=== PATIENT | male | born 1960 | race African-American/Black ===

== ENCOUNTER 2017-12-20 09:59 | Emergency (ER) | payer MEDICAID, OTHER ==
[~2017-12-20] VITALS: Ht 182.9 cm; Wt 125.0 kg
[~2017-12-20 09:59] MED LIST: ASPI-1158 PO; ESCI10TA PO
[2017-12-20 10:15] VITALS: BP 173/110
== END 2017-12-20 11:44 | disposition home or self-care (01) ==
LOC: ER 09:59
DX: I10 Essential (primary) hypertension (principal); Z79.82 Long term (current) use of aspirin
CPT/HCPCS: 99281

== ENCOUNTER 2018-10-26 16:17 | Emergency (ER) | payer MEDICAID ==
[~2018-10-26] VITALS: Ht 180.3 cm; Wt 98.0 kg
[2018-10-26] MEDS ORDERED: SODIUM CHLORIDE 0.9% 1,000 ML IV ONE (17:54)
[2018-10-26] MEDS ORDERED: ASPIRIN 81MG TABLET PO ONE (18:00)
[2018-10-26 19:26] LABS: BASOPHILS % 1.1 % (0.0-2.0); CHLORIDE 100 mEq/L (98-107); EOSINOPHILS % 1.2 % (0.0-5.0); HEMATOCRIT. 40.2 % (42.0-52.0); MEAN CORPUSCULAR HEMOGLOBIN 30.7 pg (28.0-32.0); MEAN CORPUSCULAR VOLUME 88.2 fL (80.0-94.0); MEAN PLATELET VOLUME 8.5 fl (7.4-10.4); MONOCYTES % 8.6 % (2.0-8.0); NEUTROPHILS % 50.1 % (40.0-76.0); PLATELET 200 x1000/uL (130-400); RED BLOOD CELL COUNT 4.56 mill/uL (4.7-6.1); RED CELL DISTRIBUTION WIDTH 13.6 % (11.6-14.6)
[2018-10-26 21:06] VITALS: BP 126/70
== END 2018-10-26 21:07 | disposition left against medical advice (07) ==
LOC: ER 16:17 → CANBEDREQ 23:31
DX: N17.9 Acute kidney failure, unspecified (principal); I95.9 Hypotension, unspecified; R07.89 Other chest pain; I10 Essential (primary) hypertension; E78.00 Pure hypercholesterolemia, unspecified; R00.0 Tachycardia, unspecified; E11.9 Type 2 diabetes mellitus without complications; Z79.82 Long term (current) use of aspirin
CPT/HCPCS: 36415; 71045; 80053; 83880; 84484; 85025; 93005; 96360; 96361; 99284; J7030

== ENCOUNTER 2019-05-03 15:06 | Emergency (ER) | payer MEDICAID | END 2019-05-03 19:26 | disposition left against medical advice (07) | LOC: ER 15:06 | DX: Z53.21 Procedure and treatment not carried out due to patient leaving prior to being seen by health care provider (principal) ==

== ENCOUNTER 2019-10-08 02:21 | Emergency (ER) | payer MEDICAID ==
[~2019-10-08] VITALS: Ht 182.9 cm; Wt 127.0 kg
[2019-10-08] MEDS ORDERED: MORPHINE SULFATE 4 MG/ML CPJ (NOT FOR IM USE) IV STA (06:45)
[2019-10-08 07:30] LABS: BASOPHILS % 1.6 % (0.0-2.0); EOSINOPHILS % 2.7 % (0.0-5.0); HEMATOCRIT. 40.9 % (42.0-52.0); HEMOGLOBIN. 14.3 g/dL (14.0-18.0); LYMPHOCYTES % 39.3 % (20.0-50.0); MEAN CORPUSCULAR VOLUME 88.7 fL (80.0-94.0); MEAN PLATELET VOLUME 8.5 fl (7.4-10.4); MONOCYTES % 8.7 % (2.0-8.0); NEUTROPHILS % 47.7 % (40.0-76.0); PLATELET 209 x1000/uL (130-400); RED BLOOD CELL COUNT 4.61 mill/uL (4.7-6.1); RED CELL DISTRIBUTION WIDTH 13.8 % (11.6-14.6)
[2019-10-08 07:32] LABS: CHLORIDE 105 mEq/L (98-107)
[2019-10-08 07:35] LABS: PROTHROMBIN TIME 10.2 sec (9.6-11.0)
[2019-10-08 08:20] VITALS: BP 127/92
[2019-10-08 08:40] LABS: COLOR URINE YELLOW (YELLOW); KETONES URINE NEGATIVE (NEGATIVE); LEUKOCYTE ESTERASE URINE NEGATIVE (NEGATIVE); NITRITE URINE NEGATIVE (NEGATIVE); OCCULT BLOOD URINE NEGATIVE (NEGATIVE); PH URINE 5.5 (4.5-8.0); PROTEIN URINE NEGATIVE (NEGATIVE); SPECIFIC GRAVITY URINE 1.017 (1.005-1.030); UROBILINOGEN URINE 0.2 E.U./dL (0.2-1.0)
[2019-10-08 08:41] LABS: CLARITY URINE CLEAR (CLEAR)
== END 2019-10-08 08:25 | disposition home or self-care (01) ==
LOC: ER 02:46
DX: K42.9 Umbilical hernia without obstruction or gangrene (principal); K57.30 Diverticulosis of large intestine without perforation or abscess without bleeding; E11.9 Type 2 diabetes mellitus without complications; I10 Essential (primary) hypertension; E78.00 Pure hypercholesterolemia, unspecified; Z79.82 Long term (current) use of aspirin
CPT/HCPCS: 36415; 74176; 80053; 81003; 83690; 85025; 85610; 96374; 99284; J2270

== ENCOUNTER 2019-11-12 10:49 | Inpatient (IN) | payer MEDICAID ==
[~2019-11-12] VITALS: Ht 182.9 cm; Wt 127.0 kg
[2019-11-12] MEDS ORDERED: SODIUM CHLORIDE 0.9% 1,000 ML IV ONE (11:47)
[2019-11-12 11:51] LABS: CHLORIDE 102 mEq/L (98-107)
[2019-11-12 11:52] LABS: BASOPHILS % 1.1 % (0.0-2.0); EOSINOPHILS % 0.5 % (0.0-5.0); HEMATOCRIT. 44.1 % (42.0-52.0); HEMOGLOBIN. 15.2 g/dL (14.0-18.0); LYMPHOCYTES % 27.2 % (20.0-50.0); MEAN CORPUSCULAR HEMOGLOBIN 30.4 pg (28.0-32.0); MEAN CORPUSCULAR VOLUME 88.2 fL (80.0-94.0); MEAN PLATELET VOLUME 8.4 fl (7.4-10.4); MONOCYTES % 10.1 % (2.0-8.0); NEUTROPHILS % 61.1 % (40.0-76.0); PLATELET 193 x1000/uL (130-400); RED CELL DISTRIBUTION WIDTH 14.7 % (11.6-14.6)
[2019-11-12] MEDS: POTASSIUM CHLORIDE 20MEQ TABLET SR PO NR ×2 (12:15→13:34)
[2019-11-12] MEDS ORDERED: SODIUM CHLORIDE 0.9% 1000ML BAG (SEPSIS BOLUS) IV ONE (13:00)
[2019-11-12 13:36] LABS: CLARITY URINE CLEAR (CLEAR); COLOR URINE YELLOW (YELLOW); KETONES URINE NEGATIVE (NEGATIVE); LEUKOCYTE ESTERASE URINE NEGATIVE (NEGATIVE); NITRITE URINE NEGATIVE (NEGATIVE); OCCULT BLOOD URINE NEGATIVE (NEGATIVE); PH URINE 6.5 (4.5-8.0); PROTEIN URINE NEGATIVE (NEGATIVE); SPECIFIC GRAVITY URINE 1.014 (1.005-1.030); UROBILINOGEN URINE 0.2 E.U./dL (0.2-1.0)
[2019-11-12 13:51] LABS: *AMPHETAMINES SCREEN URINE NEGATIVE (NEGATIVE); *BARBITURATES SCREEN URINE NEGATIVE (NEGATIVE); *BENZODIAZEPINES SCREEN URINE NEGATIVE (NEGATIVE); METHADONE URINE SCREEN NEGATIVE (NEGATIVE); OPIATES URINE SCREEN NEGATIVE (NEGATIVE)
[2019-11-12 13:52] LABS: *COCAINE SCREEN URINE NEGATIVE (NEGATIVE); PHENCYCLIDINE URINE SCREEN NEGATIVE (NEGATIVE)
[2019-11-12 13:53] LABS: CANNABINOID URINE SCREEN NEGATIVE (NEGATIVE)
[2019-11-12] MEDS ORDERED: SODIUM CHLORIDE 0.9% IV SCH (14:15)
[2019-11-12] MEDS ORDERED: ASPIRIN 325MG EC TABLET PO ONE (14:45)
[2019-11-12] MEDS: SODIUM CHLORIDE 0.45% 1,000 ML IV SCH (17:09)
[2019-11-12] MEDS ORDERED: IPRATROPIUM/ALBUTEROL 0.5-3(2.5)MG/3ML NEB NEB PRN (17:15)
[2019-11-12] MEDS ORDERED: DIPHENHYDRAMINE 50MG/ML VIAL IV PRN (17:15)
[2019-11-12] MEDS ORDERED: MORPHINE SULFATE 2 MG/ML CPJ (NOT FOR IM USE) IV PRN (17:15)
[2019-11-12] MEDS ORDERED: ACETAMINOPHEN 325MG TABLET PO PRN (17:15)
[2019-11-12] MEDS ORDERED: LORAZEPAM 2MG/ML CPJ IV PRN (17:15)
[2019-11-12] MEDS ORDERED: DEXTROSE 50% WATER 50ML SYRINGE IV PRN (17:15)
[2019-11-12] MEDS ORDERED: CLONIDINE 0.1MG TABLET PO PRN (17:15)
[2019-11-12] MEDS ORDERED: NA PHOS,M-B/NA PHOS,DI-BA ENEMA 118ML PR PRN (17:15)
[2019-11-12] MEDS ORDERED: HYDRALAZINE 20MG/ML VIAL IV PRN (17:15)
[2019-11-12] MEDS ORDERED: DOCUSATE SODIUM 100MG CAPSULE PO PRN (17:15)
[2019-11-12] MEDS ORDERED: ENOXAPARIN 40MG/0.4ML SYR SUBCUT SCH (17:15)
[2019-11-12] MEDS ORDERED: HYDROCODONE/ACETAMINOPHEN 10/325MG TABLET PO PRN (17:15)
[2019-11-12] MEDS ORDERED: ONDANSETRON HCL 4MG/2ML INJ IV PRN (17:15)
[2019-11-12] MEDS ORDERED: MAGNESIUM/ALUMINUM HYDROXIDE/SIMETHICONE 30ML UDC PO PRN (17:15)
[2019-11-12] MEDS ORDERED: GUAIFENESIN 200MG/10ML SUGAR FREE UDC PO PRN (17:15)
[2019-11-12] MEDS: INSULIN LISPRO 100 UNITS/ML SUBCUT SCH ×2 (18:20→21:00)
[2019-11-12] MEDS: SODIUM CHLORIDE 0.9% INJ 3ML FLUSH IVF SCH (22:00)
[2019-11-12 22:30] VITALS: BP 141/86
[2019-11-12 23:42] LABS: CREATINE KINASE 200 IU/L (39-308)
[2019-11-12 23:44] LABS: CREATINE KINASE MB FRACTION 1.4 ng/mL (0.5-3.6)
[2019-11-13] MEDS ORDERED: TAMS-11 PO (01:39)
[2019-11-13] MEDS ORDERED: ASPI-1497 PO (01:39)
[2019-11-13] MEDS ORDERED: GEMF600T5 PO (01:39)
[2019-11-13] MEDS ORDERED: AMLO10TA80 PO (01:39)
[2019-11-13] MEDS ORDERED: HYDR-2510 PO (01:39)
[2019-11-13] MEDS ORDERED: ATOR20TA PO (01:39)
[2019-11-13] MEDS ORDERED: LOSA100T32 PO (01:39)
[2019-11-13] MEDS ORDERED: SITA50TA3 PO (01:39)
[2019-11-13 04:42] VITALS: BP 116/67
[2019-11-13] MEDS: SODIUM CHLORIDE 0.9% INJ 3ML FLUSH IVF SCH ×3 (06:03→21:18)
[2019-11-13] MEDS: BLOOD SUGAR DIAGNOSTIC STRIP TEST SCH ×4 (07:05→20:32)
[2019-11-13] MEDS: INSULIN LISPRO 100 UNITS/ML SUBCUT SCH ×4 (07:50→20:32)
[2019-11-13 07:54] LABS: CHLORIDE 104 mEq/L (98-107)
[2019-11-13 08:00] VITALS: BP 110/79
[2019-11-13 08:08] LABS: BASOPHILS % 1.1 % (0.0-2.0); EOSINOPHILS % 1.5 % (0.0-5.0); HEMATOCRIT. 38.5 % (42.0-52.0); HEMOGLOBIN. 13.6 g/dL (14.0-18.0); LYMPHOCYTES % 34.7 % (20.0-50.0); MEAN CORPUSCULAR HEMOGLOBIN 31.4 pg (28.0-32.0); MEAN CORPUSCULAR VOLUME 89.2 fL (80.0-94.0); MEAN PLATELET VOLUME 8.8 fl (7.4-10.4); NEUTROPHILS % 53.7 % (40.0-76.0); PLATELET 170 x1000/uL (130-400); RED BLOOD CELL COUNT 4.32 mill/uL (4.7-6.1); RED CELL DISTRIBUTION WIDTH 14.2 % (11.6-14.6)
[2019-11-13 08:16] LABS: LDL CHOLESTEROL 60 mg/dL (5-100)
[2019-11-13 08:17] LABS: HDL CHOLESTEROL 38 mg/dL (40-59)
[2019-11-13 08:20] LABS: CREATINE KINASE 165 IU/L (39-308); CREATINE KINASE MB FRACTION 1.1 ng/mL (0.5-3.6)
[2019-11-13] MEDS: ENOXAPARIN 30MG/0.3ML SYR SUBCUT SCH ×2 (09:41→20:34)
[2019-11-13] MEDS ORDERED: SODIUM CHLORIDE 0.9% 250 ML IV ONE (10:30)
[2019-11-13] MEDS ORDERED: POTASSIUM CHLORIDE 20MEQ TABLET SR PO SCH (11:00)
[2019-11-13 12:00] VITALS: BP 119/78
[2019-11-13] MEDS: SODIUM CHLORIDE 0.45% 1,000 ML IV SCH (15:12)
[2019-11-13 16:00] VITALS: BP 112/75
[2019-11-13 20:00] VITALS: BP 132/87
[2019-11-13] MEDS ORDERED: METOPROLOL TARTRATE 50MG TABLET PO SCH (21:00)
[2019-11-14] VITALS: BP 123/72
[2019-11-14 04:00] VITALS: BP 108/73
[2019-11-14] MEDS: SODIUM CHLORIDE 0.9% INJ 3ML FLUSH IVF SCH (05:13)
[2019-11-14] MEDS: BLOOD SUGAR DIAGNOSTIC STRIP TEST SCH (06:40)
[2019-11-14] MEDS: INSULIN LISPRO 100 UNITS/ML SUBCUT SCH (07:50)
[2019-11-14 09:00] VITALS: BP 119/82
== END 2019-11-14 09:20 | disposition home or self-care (01) | DRG 48 ==
LOC: ER 10:49 → 6WST 13:38 → ENRESERV 21:39
PROVIDERS: ADMIT Internal Medicine; ATTEND Internal Medicine
DX: G90.8 Other disorders of autonomic nervous system (principal); E11.9 Type 2 diabetes mellitus without complications; E87.6 Hypokalemia; E66.9 Obesity, unspecified; E78.5 Hyperlipidemia, unspecified; F10.10 Alcohol abuse, uncomplicated; R00.2 Palpitations; I10 Essential (primary) hypertension; E78.00 Pure hypercholesterolemia, unspecified; F41.9 Anxiety disorder, unspecified; Z87.891 Personal history of nicotine dependence; Z68.38 Body mass index [BMI] 38.0-38.9, adult; Z79.82 Long term (current) use of aspirin; Z79.84 Long term (current) use of oral hypoglycemic drugs; Z79.899 Other long term (current) drug therapy
CPT/HCPCS: 36415; 71045; 80053; 80061; 80305; 81003; 82550; 82553; 82962; 83605; 83880; 84443; 84484; 85025; 85379; 93005; 93970; 97162; 99285; J1650; J1815; J2060; J2270; J7030

== ENCOUNTER 2020-04-19 13:01 | Emergency (ER) | payer MEDICAID ==
[~2020-04-19] VITALS: Ht 180.3 cm; Wt 131.0 kg
[~2020-04-19 13:01] MED LIST changes: +AMLO10TA80 PO; -ASPI-1158 PO; +ASPI-1497 PO; +ATOR20TA PO; +GEMF600T5 PO; +HYDR-2510 PO; +LOSA100T32 PO; +SITA50TA3 PO; +TAMS-11 PO
[2020-04-19 13:04] VITALS: BP 121/81
[2020-04-19] MEDS ORDERED: ASPIRIN 81MG TABLET PO ONE (14:30)
== END 2020-04-19 15:00 | disposition left against medical advice (07) ==
LOC: ER 13:01
DX: R07.89 Other chest pain (principal); I10 Essential (primary) hypertension; E11.9 Type 2 diabetes mellitus without complications; E78.00 Pure hypercholesterolemia, unspecified; Z79.82 Long term (current) use of aspirin
CPT/HCPCS: 93005; 99283

== ENCOUNTER 2022-02-24 08:23 | Emergency (ER) | payer OTHER, MEDICAID ==
[~2022-02-24] VITALS: Ht 182.9 cm; Wt 128.0 kg
[~2022-02-24 08:23] MED LIST changes: -GEMF600T5 PO; +GEMF600T90 PO; -HYDR-2510 PO; +HYDR50TA PO
[2022-02-24 09:26] LABS: BASOPHILS % 1.2 % (0.0-2.0); EOSINOPHILS % 2.1 % (0.0-5.0); HEMATOCRIT. 40.3 % (42.0-52.0); HEMOGLOBIN. 13.7 g/dL (14.0-18.0); LYMPHOCYTES % 29.1 % (20.0-50.0); MEAN CORPUSCULAR HEMOGLOBIN 30.1 pg (28.0-32.0); MEAN CORPUSCULAR VOLUME 88.6 fL (80.0-94.0); MEAN PLATELET VOLUME 8.4 fl (7.4-10.4); MONOCYTES % 10.8 % (2.0-8.0); NEUTROPHILS % 56.8 % (40.0-76.0); PLATELET 181 x1000/uL (130-400); RED BLOOD CELL COUNT 4.55 mill/uL (4.7-6.1); RED CELL DISTRIBUTION WIDTH 16.9 % (11.6-14.6)
[2022-02-24 09:28] LABS: CHLORIDE 105 mEq/L (98-107)
[2022-02-24] MEDS ORDERED: POTASSIUM CHLORIDE 20MEQ TABLET SR PO ONE (10:00)
[2022-02-24] MEDS ORDERED: ONDANSETRON HCL 4MG/2ML INJ IV ONE (10:00)
[2022-02-24] MEDS ORDERED: SODIUM CHLORIDE 0.9% 1,000 ML IV ONE (10:30)
[2022-02-24] MEDS ORDERED: ASPIRIN 81MG TABLET PO NR (15:00)
[2022-02-24] MEDS ORDERED: LORAZEPAM 1MG TABLET PO ONE (21:30)
[2022-02-24 21:49] VITALS: BP 110/88
== END 2022-02-24 23:11 | disposition short-term general hospital (02) ==
LOC: ER 08:23 → CANBEDREQ 23:42
DX: R07.89 Other chest pain (principal); R00.0 Tachycardia, unspecified; E87.6 Hypokalemia; I20.0 Unstable angina; E11.9 Type 2 diabetes mellitus without complications; E78.00 Pure hypercholesterolemia, unspecified; I10 Essential (primary) hypertension; Z79.899 Other long term (current) drug therapy; Z20.822 Contact with and (suspected) exposure to COVID-19
CPT/HCPCS: 36415; 71045; 80053; 82962; 83880; 84443; 84484; 85025; 85379; 87426; 93005; 96361; 96374; 99291; C9803; J2405; J7030; Z7610